=== PATIENT | male | born 1950 | race Caucasian/White ===

== ENCOUNTER 2016-09-29 17:03 | Emergency (ER) | payer MEDICARE, BC ==
[~2016-09-29 17:03] MED LIST: Sodium Chloride 0.9% 500 ML BAG ONE
[2016-09-29 17:37] LABS: #Basophils 0.1 thou/uL (0.0-0.2); #Eosinphils 0.4 thou/uL (0.0-0.7); #Lymphocytes 1.5 thou/uL (1.20-3.40); #Monocytes 0.7 thou/uL (0.11-0.59); #Neutrophils 3.3 thou/uL (1.40-6.50); %Basophils 1.6 % (0.0-1.0); %Eosinophils 5.9 % (0.0-10.0); %Lymphocytes 24.8 % (21.0-51.0); %Monocytes 12.2 % (0.0-10.0); %Neutrophils 55.5 % (42.0-75.0); Hemoglobin 10.9 g/dL (14.0-18.0); Mean Corpuscular HGB CONC 32.1 g/dL (32.0-36.0); Mean Corpuscular Hemoglobin 31.1 pg (27.0-31.0); Mean Corpuscular Volume 96.9 fl (80.0-94.0); Mean Platelet Volume 8.1 fL (7.4-10.4); Platelet Count 149 thou/uL (130-400); RBC Distribution Width 14.1 % (11.5-14.5); Red Blood Cell (RBC) Count 3.51 mill/uL (4.70-6.10); White Blood Cell (WBC) Count 5.9 thou/uL (4.8-10.8)
[2016-09-29 17:38] LABS: PTT 25.6 SEC (22.9-36.1); Prothrombin Time 13.4 SEC (12.0-14.7)
[2016-09-29 17:49] LABS: ALT (SGPT) 21 U/L (8-55); AST (SGOT) 22 U/L (5-34); Albumin 3.8 g/dL (3.4-4.8); Alkaline Phosphatase 65 U/L (40-150); Anion Gap 15 mmol/L (10-20); BUN (Urea Nitrogen) 34 mg/dL (8.4-25.7); Bilirubin, Total 0.3 mg/dL (0.2-1.2); Calc. Creatinine Clearance 0 mL/min (70-130); Calcium 8.9 mg/dL (7.8-10.44); Carbon Dioxide 25 mmol/L (23-31); Chloride 105 mmol/L (98-107); Estimated GFR-MDRD 23; Globulin 2.6 g/dL (2.4-3.5); Glucose 83 mg/dL (80-115); Potassium 4.7 mmol/L (3.5-5.1); Protein, Total 6.4 g/dL (5.8-8.1); Sodium 140 mmol/L (136-145)
[2016-09-29 17:52] LABS: CKMB 1.8 ng/mL (0-6.6); Troponin I Less than 0.010 ng/mL (< 0.028)
[2016-09-29 18:10] LABS: Clarity Hazy (Clear)
[2016-09-29 18:17] LABS: Bilirubin Negative (Negative); Blood, Urine Negative (Negative); Glucose, Urine (Dipstick) 100 mg/dL (Negative); Leukocyte Negative (Negative); Nitrite Negative (Negative); Protein, Urine (Dipstick) Negative (Neg-Trace); Specific Gravity, Urine 1.015 (1.005-1.030); Urobilinogen 0.2 mg/dL (0.2-1.0)
--- NOTE | 2016-09-29 18:52 | CT ---
HISTORY: Abdominal pain. IV contrast was not given due to elevated labs. The patient is confused. The patient also has low bl ood pressure. Noncontrast enhanced CT images of the abdomen and pelvis is performed. IV and oral contrast was not given. This does decrease the sensitivity for detection of pathology. The lung bases are unremarkabl e. No evidence of free intraperitoneal air seen. Bilateral iliac arterial endovascular stents are se en. Atherosclerotic calcification of the abdominal aorta is seen. The liver, spleen, gallbladder, pa ncreas, adrenal glands, and kidneys are relatively unremarkable although evaluation is limited due t o the fact that IV contrast was not given. Small bowel loops are unremarkable. A large amount of stool was seen in the colon. No evidence of pe riaortic lymphadenopathy seen. No evidence of ascites seen. IMPRESSION: Unremarkable CT of abdomen and pelvis. POS: [facility]
--- NOTE | 2016-09-29 19:06 | RAD ---
AP VIEW CHEST: 09/29/16 HISTORY: Syncope. AP view chest obtained on 09/29/16. Comparison made to previous exam from 01/25/14. AP view chest demonstrates the lungs to be well aerated. No evidence of active intrathoracic disease seen. No evidence of effusions, pneumonia, or pneumothorax seen. IMPRESSION: Unremarkable AP view chest. POS: [facility]
== END 2016-09-29 21:06 | disposition home or self-care (01) ==
LOC: MADERS 17:03
DX: I95.9 Hypotension, unspecified (principal); E11.9 Type 2 diabetes mellitus without complications; I25.10 Atherosclerotic heart disease of native coronary artery without angina pectoris; Z79.899 Other long term (current) drug therapy; Z79.84 Long term (current) use of oral hypoglycemic drugs
CPT/HCPCS: 36416; 71010; 74176; 80053; 81003; 82274; 82553; 83605; 84484; 85025; 85610; 85730; 93005; 94760; 96360; J7050

== ENCOUNTER 2018-08-18 11:21 | Emergency (ER) | payer MEDICARE, BC ==
[2018-08-18] MEDS ORDERED: predniSONE 20 MG TAB ONE (12:04)
[2018-08-18] MEDS ORDERED: HYDROcodone/Acetaminophen 10/325 mg Tablet ONE (12:04)
== END 2018-08-18 12:10 | disposition home or self-care (01) ==
LOC: MADERS 11:21
DX: M54.12 Radiculopathy, cervical region (principal)
CPT/HCPCS: 99283; J7512

== ENCOUNTER 2018-08-27 15:09 | Emergency (ER) | payer MEDICARE, BC ==
--- NOTE | 2018-08-27 16:06 | RAD ---
TWO VIEWS OF THE CHEST: 08/27/18 COMPARISON: 01/03/13. HISTORY: Fever. FINDINGS: Two views of the chest show normal sized cardiomediastinal silhouette. There is no evidence of consol idation, mass, or pleural effusion. The bones are unremarkable. IMPRESSION: No evidence of acute cardiopulmonary disease. POS: [facility]
[2018-08-27 16:13] LABS: Bilirubin Small (Negative); Blood, Urine Negative (Negative); Glucose, Urine (Dipstick) >=1000 mg/dL (Negative); Leukocyte Negative (Negative); Nitrite Negative (Negative); Protein, Urine (Dipstick) Negative (Neg-Trace)
[2018-08-27 16:21] LABS: Clarity Hazy (Clear)
--- NOTE | 2018-08-27 17:13 | CT ---
CT head without contrast: Multiple axial tomograms obtained through the head without IV enhancement. INDICATIONS: Mental status change COMPARISON: None FINDINGS: Ventricles have normal size and position. No evidence of intracranial mass, hemorrhage, edema, or infarct. Visualized sinuses and mastoids appear clear. Bony calvarium appears unremarkable. IMPRESSION: No acute finding
[2018-08-27 17:48] LABS: ALT (SGPT) 37 U/L (8-55); AST (SGOT) 31 U/L (5-34); Albumin 3.3 g/dL (3.4-4.8); Alkaline Phosphatase 71 U/L (40-150); Anion Gap 15 mmol/L (10-20); BUN (Urea Nitrogen) 26 mg/dL (8.4-25.7); Bilirubin, Total 0.5 mg/dL (0.2-1.2); Calc. Creatinine Clearance 0 mL/min (70-130); Calcium 8.8 mg/dL (7.8-10.44); Carbon Dioxide 28 mmol/L (23-31); Chloride 99 mmol/L (98-107); Estimated GFR-MDRD 39; Globulin 2.5 g/dL (2.4-3.5); Glucose 192 mg/dL (80-115); Potassium 4.6 mmol/L (3.5-5.1); Protein, Total 5.8 g/dL (5.8-8.1); Sodium 137 mmol/L (136-145)
[2018-08-27 17:56] LABS: Band 7 % (5-11); Eosinophils 4 % (0-10); Hemoglobin 12.8 g/dL (14.0-18.0); Lymphocytes 17 % (21-51); MDiff Complete? YES; Mean Corpuscular HGB CONC 31.8 g/dL (32.0-36.0); Mean Corpuscular Hemoglobin 30.2 pg (27.0-31.0); Mean Corpuscular Volume 94.8 fL (78.0-98.0); Mean Platelet Volume 7.8 fL (7.4-10.4); Monocytes 8 % (0-10); Neutrophil 64 % (42-75); Platelet Count 104 thou/uL (130-400); Platelet Morphology Comment Appears Decreased; RBC Distribution Width 14.3 % (11.5-14.5); Red Blood Cell (RBC) Count 4.26 mill/uL (4.70-6.10); White Blood Cell (WBC) Count 4.3 thou/uL (4.8-10.8)
== END 2018-08-27 18:46 | disposition home or self-care (01) ==
LOC: MADERS 15:09
DX: M54.2 Cervicalgia (principal); G89.29 Other chronic pain; R50.9 Fever, unspecified; I12.9 Hypertensive chronic kidney disease with stage 1 through stage 4 chronic kidney disease, or unspecified chronic kidney disease; N18.3 Chronic kidney disease, stage 3 (moderate); E78.5 Hyperlipidemia, unspecified; F41.9 Anxiety disorder, unspecified; Z79.899 Other long term (current) drug therapy; Z79.02 Long term (current) use of antithrombotics/antiplatelets; Z79.4 Long term (current) use of insulin
CPT/HCPCS: 36415; 70450; 71046; 80053; 81003; 83880; 84484; 85025; 87081; 87430; 93005

== ENCOUNTER 2021-08-13 16:05 | Emergency (ER) | payer MEDICARE, BC ==
[2021-08-13 18:28] LABS: Bilirubin Negative (Negative); Blood, Urine Large (Negative); Glucose, Urine (Dipstick) 500 mg/dL (Negative); Ketone, Urine Trace mg/dL (Negative); Leukocyte Negative (Negative); Nitrite Negative (Negative); Protein, Urine (Dipstick) 30 mg/dL (Neg-Trace); Specific Gravity, Urine 1.025 (1.005-1.030); pH, Urine 5.5 (5.0-9.0)
[2021-08-13 18:29] LABS: Bacteria/HPF Rare-Few HPF (None Seen); Clarity Hazy (Clear); RBC/HPF Greater than 50 HPF (0-3); Squamous Epithelial 0-3 HPF (0-3); WBC/HPF 0-3 HPF (0-3)
== END 2021-08-13 18:45 | disposition home or self-care (01) ==
LOC: MADERS 16:05
DX: T83.098A Other mechanical complication of other urinary catheter, initial encounter (principal); R31.9 Hematuria, unspecified; E11.9 Type 2 diabetes mellitus without complications; E78.5 Hyperlipidemia, unspecified; I10 Essential (primary) hypertension; Z79.899 Other long term (current) drug therapy; Z79.4 Long term (current) use of insulin
CPT/HCPCS: 81003; 81015; 99283

== ENCOUNTER 2022-08-26 13:47 | Emergency (ER) | payer BC, MEDICARE | END 2022-08-26 15:22 | disposition home or self-care (01) | LOC: MADERS 13:47 | DX: S09.90XA Unspecified injury of head, initial encounter (principal); S16.1XXA Strain of muscle, fascia and tendon at neck level, initial encounter; E78.5 Hyperlipidemia, unspecified; E11.22 Type 2 diabetes mellitus with diabetic chronic kidney disease; I12.9 Hypertensive chronic kidney disease with stage 1 through stage 4 chronic kidney disease, or unspecified chronic kidney disease; N18.30 Chronic kidney disease, stage 3 unspecified; Z79.899 Other long term (current) drug therapy; Z79.4 Long term (current) use of insulin; W19.XXXA Unspecified fall, initial encounter | CPT/HCPCS: 70450; 72040 ==

== ENCOUNTER 2025-01-10 19:54 | Emergency (ER) | payer MEDICARE ==
[2025-01-10] MEDS ORDERED: Aspirin Chewable 81 MG TAB ONE (20:09)
[2025-01-10 20:20] LABS: #Basophils 0.1 thou/uL (0.0-0.2); #Eosinophils 0.4 thou/uL (0.0-0.7); #Lymphocytes 1.5 thou/uL (1.20-3.40); #Monocytes 0.6 thou/uL (0.11-0.59); #Neutrophils 2.9 thou/uL (1.40-6.50); %Basophils 1.8 % (0.0-1.0); %Eosinophils 6.6 % (0.0-10.0); %Lymphocytes 27.8 % (21.0-51.0); %Monocytes 10.2 % (0.0-10.0); %Neutrophils 53.6 % (42.0-75.0); Hematocrit 40.5 % (42.0-52.0); Hemoglobin 12.6 g/dL (14.0-18.0); Mean Corpuscular Hemoglobin 28.1 pg (27.0-31.0); Mean Corpuscular Volume 90.2 fl (78.0-98.0); Platelet Count 144 10x3/uL (130-400); Red Blood Cell (RBC) Count 4.49 mill/uL (4.70-6.10); White Blood Cell (WBC) Count 5.4 10x3/uL (4.8-10.8)
[2025-01-10 20:38] LABS: ALT (SGPT) 22 U/L (Less than 45); AST (SGOT) 30 U/L (11-34); Albumin 3.3 g/dL (3.1-4.5); Alkaline Phosphatase 71 U/L (40-110); Anion Gap 16 mmol/L (10-20); BUN (Urea Nitrogen) 25 mg/dL (8.4-25.7); Bilirubin, Total 0.4 mg/dL (0.3-1.2); Calc. Creatinine Clearance 0 mL/min (70-130); Calcium 9.3 mg/dL (7.8-10.44); Carbon Dioxide 22 mmol/L (23-31); Chloride 107 mmol/L (98-107); Globulin 3.0 g/dL (2.4-3.5); Glucose 189 mg/dL (83-110); Potassium 4.4 mmol/L (3.5-5.1); Sodium 141 mmol/L (136-145); Troponin I Less than 0.010 ng/mL (< 0.028)
[2025-01-10 22:38] LABS: Troponin I 0.011 ng/mL (< 0.028)
== END 2025-01-10 22:50 | disposition home or self-care (01) ==
LOC: MADERS 19:54
DX: R07.89 Other chest pain (principal); I10 Essential (primary) hypertension; E11.9 Type 2 diabetes mellitus without complications; Z87.891 Personal history of nicotine dependence; Z79.82 Long term (current) use of aspirin; Z79.4 Long term (current) use of insulin; Z79.899 Other long term (current) drug therapy
CPT/HCPCS: 71045; 80053; 83880; 84484; 85025; 87428; 93005